=== PATIENT | female | born 1960 ===

== ENCOUNTER 2017-07-02 11:45 | Inpatient (IN) | payer OTHER ==
[~2017-07-02] VITALS: Ht 172.7 cm; Wt 97.1 kg
[2017-07-02] MEDS ORDERED: NORVASC5 MG PO (13:23)
[2017-07-02] MEDS ORDERED: XYZAL5 MG PO (13:24)
[2017-07-02] MEDS ORDERED: GABAPENTIN400 MG PO (13:24)
[2017-07-10] MEDS ORDERED: DOCUSATE SODIU100 MG PO (09:56)
[2017-07-10] MEDS ORDERED: GABAPENTIN800 MG PO (09:56)
[2017-07-10] MEDS ORDERED: PERCOCET 5-3251 EACH PO (09:56)
[2017-07-10] MEDS ORDERED: CLONAZEPAM1 MG PO (09:56)
[2017-07-10] MEDS ORDERED: CIPROFLOXACIN750 MG PO (09:56)
== END 2017-07-10 14:04 | disposition home or self-care (01) | DRG 460 ==
LOC: O/R 07-09 04:45 → SURG 07-09 11:45 → PED 07-09 12:04 → SURG 07-09 13:00 → PED 07-10 14:04
PROVIDERS: Orthopaedic Surgery Orthopaedic Surgery of the Spine
PROC: 0SG00AJ Fusion of Lumbar Vertebral Joint with Interbody Fusion Device, Posterior Approach, Anterior Column, Open Approach (ICD-10-PCS; 2017-07-09)
PROC: 0ST20ZZ Resection of Lumbar Vertebral Disc, Open Approach (ICD-10-PCS; 2017-07-09)
PROC: 07DS3ZZ Extraction of Vertebral Bone Marrow, Percutaneous Approach (ICD-10-PCS; 2017-07-09)
PROC: 0SG00A0 Fusion of Lumbar Vertebral Joint with Interbody Fusion Device, Anterior Approach, Anterior Column, Open Approach (ICD-10-PCS; principal; 2017-07-09 13:00)
DX: M47.26 Other spondylosis with radiculopathy, lumbar region (principal); M48.061 Spinal stenosis, lumbar region without neurogenic claudication; I10 Essential (primary) hypertension

== ENCOUNTER 2017-09-23 05:38 | Inpatient (IN) | payer OTHER ==
[~2017-09-23] VITALS: Ht 172.7 cm; Wt 101.6 kg
[~2017-09-23 05:38] MED LIST: CIPROFLOXACIN750 MG PO; CLONAZEPAM1 MG PO; DOCUSATE SODIU100 MG PO; GABAPENTIN400 MG PO; GABAPENTIN800 MG PO; NORVASC5 MG PO; PERCOCET 5-3251 EACH PO; XYZAL5 MG PO
[2017-09-24] MEDS ORDERED: GABAPENTIN800 MG PO (07:35)
[2017-09-24] MEDS ORDERED: DOCUSATE SODIU100 MG PO (07:35)
[2017-09-24] MEDS ORDERED: AMOX-CLAV 875-1 EACH PO (07:37)
[2017-09-24] MEDS ORDERED: PERCOCET 5-3251 EACH PO (07:38)
[2017-09-24] MEDS ORDERED: CLONAZEPAM1 MG PO (07:38)
== END 2017-09-24 12:53 | disposition home or self-care (01) | DRG 516 ==
LOC: ER 05:38 → SEC-K 07:27 → O/R 10:55 → PED 16:29
PROVIDERS: Orthopaedic Surgery Orthopaedic Surgery of the Spine
PROC: 0SH004Z Insertion of Internal Fixation Device into Lumbar Vertebral Joint, Open Approach (ICD-10-PCS; 2017-09-23)
PROC: 0SP004Z Removal of Internal Fixation Device from Lumbar Vertebral Joint, Open Approach (ICD-10-PCS; principal; 2017-09-23 16:00)
DX: M48.061 Spinal stenosis, lumbar region without neurogenic claudication (principal); T84.89XA Other specified complication of internal orthopedic prosthetic devices, implants and grafts, initial encounter; I10 Essential (primary) hypertension

== ENCOUNTER 2023-12-03 12:30 | Inpatient (IN) | payer OTHER ==
[~2023-12-03] VITALS: Ht 172.7 cm; Wt 119.3 kg
[~2023-12-03 12:30] MED LIST changes: +AMOX-CLAV 875-1 EACH PO
[2023-12-03] MEDS ORDERED: SINGULAIR10 MG PO (13:52)
[2023-12-09] MEDS ORDERED: PROMETHAZINE HCL 50 MG/ML AMPUL IM PRN (07:30)
[2023-12-09] MEDS ORDERED: ENALAPRILAT DIHYDRATE 1.25 MG/ML VIAL IV PRN (07:30)
[2023-12-09] MEDS ORDERED: 0.9 % SODIUM CHLORIDE 1,000 ML IV SCH (07:30)
[2023-12-09] MEDS ORDERED: CLEOCIN HCL300 MG PO (07:38)
[2023-12-09] MEDS ORDERED: COLACE100 MG PO (07:38)
[2023-12-09] MEDS ORDERED: MEDROLPACK PO (07:38)
[2023-12-09] MEDS ORDERED: CEFAZOLIN SODIUM 1,000 MG in 0.9 % SODIUM CHLORIDE 50 ML IV SCH (09:00)
[2023-12-09] MEDS ORDERED: MORPHINE SULFATE 4 MG/ML VIAL IV SCH (09:00)
[2023-12-09] MEDS ORDERED: VANCOMYCIN HCL 1,000 MG VIAL ONE ×2 (12:25→13:08)
[2023-12-09] MEDS ORDERED: PERCOCET 5-3251 EACH PO (12:28)
[2023-12-09] MEDS ORDERED: LYRICA150 MG PO (12:28)
[2023-12-09] MEDS ORDERED: METHYLPREDNISOLONE ACETATE 80 MG/ML VIAL ONE (12:34)
[2023-12-09] MEDS ORDERED: METHYLPREDNISOLONE SOD SUCC 125 MG VIAL ONE ×2 (12:35→17:21)
[2023-12-09] MEDS ORDERED: DOCUSATE SODIUM 100MG CAP PO SCH (13:00)
[2023-12-09] MEDS ORDERED: MORPHINE SULFATE 4 MG,MORPHINE SULFATE 2 MG IV SCH (13:00)
[2023-12-09] MEDS ORDERED: VANCOMYCIN HCL 1,000 MG VIAL IR ONE (13:45)
[2023-12-09] MEDS ORDERED: METHYLPREDNISOLONE ACETATE 80 MG/ML VIAL IJ ONE ×2 (13:45)
[2023-12-09] MEDS ORDERED: METHYLPREDNISOLONE SOD SUCC 125 MG VIAL IV ONE ×2 (13:45)
[2023-12-09] MEDS ORDERED: VANCOMYCIN HCL 1,000 MG VIAL IV ONE (13:45)
[2023-12-09] MEDS ORDERED: TRANEXAMIC ACID 100MG/1ML (1000MG) AMPUL IV ONE ×3 (14:02→14:15)
[2023-12-09] MEDS ORDERED: FAMOtidine 20 MG TABLET PO SCH (17:00)
[2023-12-09] MEDS ORDERED: MONTELUKAST SODIUM 10 MG TABLET PO SCH (17:00)
[2023-12-09] MEDS ORDERED: METHYLPREDNISOLONE SOD SUCC 125 MG VIAL IV SCH (17:00)
[2023-12-09] MEDS ORDERED: GABAPENTIN 800 MG TABLET PO SCH (21:00)
[2023-12-09] MEDS ORDERED: VANCOMYCIN HCL 1,000 MG VIAL IV SCH (21:00)
[2023-12-09] MEDS ORDERED: Pregabalin 50 MG CAPSULE PO SCH (21:00)
[2023-12-10] MEDS ORDERED: SODIUM CHLORIDE 0.45 % 1,000 ML IV SCH
[2023-12-10] MEDS ORDERED: LEVOTHYROXINE SODIUM 100 MCG TABLET PO SCH (06:00)
[2023-12-10] MEDS ORDERED: OxyCODONE HCL/APAP UD (PERCOCET) PO PRN (06:01)
[2023-12-10 06:32] LABS: HEMATOCRIT 38.6 % (36.0-45.00); HEMOGLOBIN 13.5 g/dL (12.0-15.00); MEAN CELL VOLUME 91.6 fL (80.00-100.00); MEAN CORPUSCULAR HEMOGLOBIN 32.1 pg (27.00-32.0); MEAN CORPUSCULAR HGB CONC 35.1 g/dl (32.0-36.0); PLATELET COUNT 230 K/uL (150-450); RED BLOOD COUNT 4.21 M/uL (4.00-6.00); RED CELL DISTRIBUTION WIDTH 13.3 % (11.5-14.5)
[2023-12-10 07:24] LABS: CALCIUM 8.8 mg/dL (8.5-10.1); CREATININE SERUM 0.66 mg/dL (0.55-1.02); GFR 91.35; POTASSIUM 4.48 mEq/L (3.5-5.1)
[2023-12-10] MEDS ORDERED: TAMSULOSIN HCL 0.4 MG CAP PO SCH (09:00)
[2023-12-10] MEDS ORDERED: LOSARTAN POTASSIUM 50 MG TABLET PO SCH (09:00)
[2023-12-10] MEDS ORDERED: Duloxetine HCl 60 MG CAPSULE.DR PO SCH (09:00)
== END 2023-12-11 11:10 | disposition home or self-care (01) | DRG 455 ==
LOC: O/R 12-09 07:55 → SURH 12-09 12:30 → PED 12-09 15:29 → SURH 12-09 16:45 → PED 12-11 11:10
PROVIDERS: ADMIT Orthopaedic Surgery Orthopaedic Surgery of the Spine; ATTEND Orthopaedic Surgery Orthopaedic Surgery of the Spine
PROC: 0SG0071 Fusion of Lumbar Vertebral Joint with Autologous Tissue Substitute, Posterior Approach, Posterior Column, Open Approach (ICD-10-PCS; 2023-12-09)
PROC: 0ST20ZZ Resection of Lumbar Vertebral Disc, Open Approach (ICD-10-PCS; 2023-12-09)
PROC: 0QB30ZZ Excision of Left Pelvic Bone, Open Approach (ICD-10-PCS; 2023-12-09)
PROC: 07DR0ZZ Extraction of Iliac Bone Marrow, Open Approach (ICD-10-PCS; 2023-12-09)
PROC: 4A1104G Monitoring of Peripheral Nervous Electrical Activity, Intraoperative, Open Approach (ICD-10-PCS; 2023-12-09)
PROC: XRGB0R7 Fusion of Lumbar Vertebral Joint using Custom-Made Anatomically Designed Interbody Fusion Device, Open Approach, New Technology Group 7 (ICD-10-PCS; principal; 2023-12-09 16:45)
DX: M43.16 Spondylolisthesis, lumbar region (principal); M48.062 Spinal stenosis, lumbar region with neurogenic claudication; M51.36 Other intervertebral disc degeneration, lumbar region; M41.56 Other secondary scoliosis, lumbar region